=== PATIENT | male | born 1970 | race Caucasian/White ===

== ENCOUNTER 2021-11-04 22:26 | Emergency (ER) | payer MEDICAID ==
[~2021-11-04] VITALS: Ht 175.3 cm; Wt 106.6 kg
[2021-11-04 22:38] VITALS: BP 145/103
--- NOTE | 2021-11-04 22:38 | NUR ---
TO BED AMBULATORY
[2021-11-04] MEDS ORDERED: LORazepam 2 MG/ML VIAL IVP ONE (23:15)
[2021-11-04] MEDS ORDERED: FOLIC ACID 5 MG/ML SYR IM ONE (23:15)
[2021-11-04] MEDS ORDERED: NACL 0.9% 1,000 ML IV ONE (23:15)
[2021-11-04] MEDS ORDERED: THIAMINE 200 MG/2 ML VIAL IM ONE (23:15)
--- NOTE | 2021-11-04 23:15 | NUR ---
ONELIA NELSON EXAMINING PATIENT
--- NOTE | 2021-11-04 23:39 | NUR ---
STATES HE LOST A BET FOR THE [employer] AND HAD TO DRINK HALF A GALLON OF VODKA. COMPLAINING OF ALCOHOL INGESTION SYMPTOMS. NO OTHER OCMPLAINTS AT THIS TIME.
[2021-11-05 00:09] LABS: BASOPHILS # (AUTO) 0.1 K/uL (0.00-0.22); BASOPHILS % (AUTO) 1.3 % (0.0-2.0); EOSINOPHILS # (AUTO) 0.1 K/uL (0-0.4); EOSINOPHILS % (AUTO) 1.1 % (0.0-4.0); HEMATOCRIT 44.7 % (36-52); HEMOGLOBIN 15.3 g/dL (12.0-18.0); LYMPHOCYTES # (AUTO) 2.4 K/uL (2.0-11.5); LYMPHOCYTES % (AUTO) 35.7 % (20.5-51.1); MEAN CORPUSCULAR HEMOGLOBIN 33 pg (27-31); MEAN CORPUSCULAR HGB CONC 34 g/dL (33-37); MEAN CORPUSCULAR VOLUME 96.9 fL (80-94); MONOCYTES # (AUTO) 0.7 K/uL (0.8-1.0); MONOCYTES % (AUTO) 10.8 % (1.7-9.3); NEUTROPHILS # (AUTO) 3.4 K/uL (1.8-7.7); NEUTROPHILS % (AUTO) 51.1 % (42.2-75.2); PLATELET COUNT (AUTO) 304 K/uL (140-450); RED BLOOD CELL COUNT(AUTO) 4.61 MIL/uL (4.20-6.10); RED CELL DISTRIBUTION WIDTH 14.7 % (11.6-13.7); WHITE BLOOD COUNT (AUTO) 6.7 K/uL (4.8-10.8)
[2021-11-05] MEDS ORDERED: LORazepam 2 MG/ML VIAL IVP ONE (00:20)
[2021-11-05 00:24] LABS: CARBON DIOXIDE 29.7 mmol/L (21-32); CREATININE 1.1 mg/dL (0.6-1.3); POTASSIUM 3.7 mmol/L (3.5-5.1); TOTAL BILIRUBIN 0.4 mg/dL (0.0-1.0)
[2021-11-05] MEDS ORDERED: LIB25 PO (01:59)
[2021-11-05] MEDS ORDERED: ONDA-188 SL (02:01)
--- NOTE | 2021-11-05 02:06 | NUR ---
PATIENT CLEARED FOR DISHCARGE AT THIS TIME PENDING RIDE
--- NOTE | 2021-11-05 03:28 | NUR ---
Dr. Zarate examining patient.
--- NOTE | 2021-11-05 06:07 | NUR ---
PATIENT CLEARED AT THIS TIME FOR DISCHARGE, AWAKE AND AMBULATORY. NO OTHER CONCERNS OR QUESTIONS AT THIS TIME FOLLOWING DISCHARGE TEACHING'
[2021-11-05 06:09] VITALS: BP 131/59
== END 2021-11-05 06:07 | disposition home or self-care (01) ==
LOC: MED 22:26
DX: F10.239 Alcohol dependence with withdrawal, unspecified (principal); I10 Essential (primary) hypertension; Z88.2 Allergy status to sulfonamides
CPT/HCPCS: 36415; 80053; 83690; 83735; 85025; 96361; 96372; 96374; 96376; 99284; G0482; J2060; J3411; J3490; J7030